=== PATIENT | male | born 1955 | race Two or more races ===

== ENCOUNTER → 2019-11-21 | Outpatient (CLI) | payer MEDICARE ==
--- NOTE | 2019-11-21 16:18 | US ---
EXAMINATION TYPE: US kidneys/renal and bladder DATE OF EXAM: 11/21/2019 COMPARISON: NONE CLINICAL HISTORY: R79.89 ABN FINDINGS OF THE BLOOD CHEMISTRY. EXAM MEASUREMENTS: Right Kidney: 9.0 x 5.3 x 4.5 cm Left Kidney: 10.1 x 5.0 x 4.3 cm Right Kidney: No hydronephrosis. Cystic area laterally measuring 0.9 cm Left Kidney: No hydronephrosis Cystic area lower pole measuring 0.6 cm Bladder: Slightly irregular urinary bladder quintana although this could relate to incomplete distention Bilateral Jets seen: No There is no evidence for hydronephrosis at this point in time. No nephrolithiasis is seen. IMPRESSION: Bilateral simple appearing cortical renal cysts. Urinary bladder wall is slightly irregul ar however this could relate to incomplete distention. Correlate with urinalysis.
== END | disposition home or self-care (01) ==
LOC: RADUSWWP 15:29
PROVIDERS: ATTEND Internal Medicine
DX: N28.1 Cyst of kidney, acquired (principal); R93.89 Abnormal findings on diagnostic imaging of other specified body structures
CPT/HCPCS: 76770